=== PATIENT | male | born 1990 | race Caucasian/White ===

== ENCOUNTER 2018-08-30 14:36 | Inpatient (IN) | payer OTHER ==
[2018-08-30] MEDS ORDERED: DIPH,PERTUS(ACELL)TETVAC-LF 0.5 ML VIAL IM ONE (14:41)
--- NOTE | 2018-08-30 14:48 | ED ---
General Adult HPI - General Stated complaint: Mental Health Time Seen by Provider: 08/30/18 14:37 Source: patient, EMS, RN notes reviewed Mode of arrival: EMS Limitations: no limitations - History of Present Illness Initial comments: Patient is a 28-year-old male presenting to the emergency department for mental health evaluation. Patient admits to being increase stress and depressive the past week or 2. Patient has been fighting with his grandma. Patient did take a box maker to his throat and attempt to cut it. Patient has no thoughts of harming others. No hallucinations. No alcohol use. Patient does smoke marijuana, otherwise no street drugs. Unclear last tetanus immunization - Related Data Home Medications Medication Instructions Recorded Confirmed Ibuprofen [Motrin] 800 mg PO Q6HR PRN 01/23/16 01/23/16 Previous Rx's Medication Instructions Recorded Naproxen 500 mg PO Q12HR 14 Days tab 01/23/16 Allergies Allergy/AdvReac Type Severity Reaction Status Date / Time No Known Allergies Allergy Verified 08/30/18 14:48 Review of Systems ROS Statement: Those systems with pertinent positive or pertinent negative responses have been documented in the HPI. ROS Other: All systems not noted in ROS Statement are negative. Constitutional: Denies: fever Eyes: Denies: eye pain ENT: Denies: ear pain Respiratory: Denies: cough Cardiovascular: Denies: chest pain Endocrine: Denies: fatigue Gastrointestinal: Denies: abdominal pain Genitourinary: Denies: dysuria Musculoskeletal: Denies: back pain Skin: Denies: rash Neurological: Denies: weakness Psychiatric: Reports: anxiety, depression, suicidal thoughts. Denies: auditory hallucinations, visual hallucinations, homicidal thoughts Past Medical History Past Medical History: No Reported History History of Any Multi-Drug Resistant Organisms: None Reported Past Surgical History: No Surgical Hx Reported Past Psychological History: Anxiety, Depression Smoking Status: Current every day smoker Past Alcohol Use History: None Reported Past Drug Use History: None Reported General Exam Limitations: no limitations General appearance: alert, anxious Head exam: Present: atraumatic Eye exam: Present: normal appearance, PERRL ENT exam: Present: normal oropharynx Neck exam: Present: other (Horizontal abrasion) Respiratory exam: Present: normal lung sounds bilaterally Cardiovascular Exam: Present: regular rate, normal rhythm GI/Abdominal exam: Present: soft. Absent: tenderness Extremities exam: Present: normal inspection Neurological exam: Present: alert Psychiatric exam: Present: anxious, other (Tearful) Skin exam: Present: abrasion (Horizontal neck abrasion) Course Vital Signs 08/30/18 14:37 Temperature 98.9 F Pulse Rate 76 Respiratory 20 Rate Blood Pressure 146/95 O2 Sat by Pulse 98 Oximetry Medical Decision Making - Medical Decision Making Patient was seen by mental health services who did fill out petition and would like to admit patient. Positive clinical certificate completed. Disposition Clinical Impression: Suicidal ideation, Depression Disposition: TRANSFER TO PSYCH HOSP/UNIT Is patient prescribed a controlled substance at d/c from ED?: No Referrals: Mathieu Adames MD [Primary Care Provider] - 1-2 days Decision Time: 15:52
[2018-08-30] MEDS ORDERED: ZIPRASIDONE 20 MG VIAL IM STA (15:48)
[2018-08-30] MEDS ORDERED: LORazepam 2 MG/ML INJ IV ONE (16:00)
[2018-08-30] MEDS ORDERED: MAGNESIUM HYDROXIDE 2,400 MG/10 ML CUP PO PRN (16:20)
[2018-08-30] MEDS ORDERED: ACETAMINOPHEN TAB 325 MG TAB PO PRN (16:20)
[2018-08-30] MEDS ORDERED: MAG HYDROX/AL HYDROX/SIMETH 30 ML CUP PO PRN (16:20)
[2018-08-30] MEDS ORDERED: LORazepam 1 MG TAB PO PRN (16:20)
[2018-08-30] MEDS ORDERED: ZIPRASIDONE 20 MG VIAL IM PRN (16:20)
[2018-08-30] MEDS ORDERED: LORazepam 2 MG/ML INJ IM PRN (16:28)
[2018-08-30 17:09] VITALS: BMI 23.1
[2018-08-30] MEDS ORDERED: NICOTINE 14MG/24HR PATCH TRANSDERM STA (20:32)
[2018-08-31] MEDS: NICOTINE 14MG/24HR PATCH TRANSDERM SCH (08:44)
--- NOTE | 2018-08-31 11:25 | P.HP ---
Psychiatric H&P - . H&P Date: 08/31/18 History & Physical: Allergies Allergy/AdvReac Type Severity Reaction Status Date / Time No Known Allergies Allergy Verified 08/30/18 15:54 Vital Signs Temp 98.6 F 08/31/18 06:22 Pulse 75 08/31/18 06:22 Resp 16 08/31/18 06:22 BP 113/73 08/31/18 06:22 Pulse Ox 98 08/30/18 14:37 Intake & Output 08/30/18 08/31/18 08/31/18 18:59 06:59 18:59 Weight 67.146 kg Assessment and Plan Assessment: Patient is a 28-year-old male presenting to the emergency department for mental health evaluation. Patient admits to being increase stress and depressive the past week or 2. Patient has been fighting with his grandma. Patient did take a box maker to his throat and attempt to cut it. Patient has no thoughts of harming others. No hallucinations. No alcohol use. Patient does smoke marijuana, otherwise no street drugs. Unclear last tetanus immunization Psychiatric: Reports: anxiety, depression, suicidal thoughts. Denies: auditory hallucinations, visual hallucinations, homicidal thoughts Pt brought in by EMS for cutting his throat with box maker and being suicidal and depressed. Pt arrived at his mothers house picked up a knife and cut his throat. She called EMS and they brought him to the hospital. He was very distraught and stated he had been thrown out of his grandmothers house because she accused him of stealing money out of her lock box. He was so upset because he said this was not the first time she accused him. He admits that he has done it in the past but he did not this time. Pt admits to having a hard time with his life. He states that his father has never been in his life and his mother is not even sure who he is. He felt unloved and unwanted in his life. He said the only attention he got was negative attention. So he resorted to bad behavior. His mother thinks he might have a drug problem such as adderall. He was laid off of his job 4 months ago and he has nothing to nano on. Now tht his grandmother threw him out and his mother stated he could not live with her because of her younger children, he has no hope for the future. pt is without a job not money so he sleeps a lot Pt was very agitated and did not want to be admitted. He was very emotional and crying. He became a flight risk, we had a sitter put on him. He had a hard time controlling his emotions. He was given geodon/ativan im to help calm him down. - Related Data Home Medications Medication Instructions Recorded Confirmed Ibuprofen [Motrin] 800 mg PO Q6HR PRN 01/23/16 01/23/16 Previous Rx's Medication Instructions Recorded Naproxen 500 mg PO Q12HR 14 Days tab 01/23/16 Allergies Allergy/AdvReac Type Severity Reaction Status Date / Time No Known Allergies Allergy Verified 08/30/18 14:48 Past Medical History Past Medical History: No Reported History History of Any Multi-Drug Resistant Organisms: None Reported Past Surgical History: No Surgical Hx Reported Past Psychological History: Anxiety, Depression Smoking Status: Current every day smoker Past Alcohol Use History: None Reported Past Drug Use History: None Reported Musculoskeletal Examination - Abnormal/Involuntary Movements: [none Strength: [greater than antigravity (greater than/equal to 3/5) in all extremities Muscle Tone: [no impairment Gait: [grossly normal Station: [grossly normal Mental Status Examination - this is a 28-year-old single male who has never known his father about lives with his grandmother and mother lives in the same apartment complex. He and grandmother were having a discussion about bills money responsibilities and he became extremely depressed after comments came from grandmother and when he threatened to cut his throat with box maker his grandmother stated he was a coward and then he cut himself. We discussed the dynamics in the [place] and relationship with mother. Mother still has 2 children living in the house 17-year-old and a 21-year-old. Family felt that he could live with the grandmother scripts place to the other 2 children. We discussed possibility of moving back with his mother may be a more stable environment. He's had lifelong history of depression was on medications before but stopped. He does not see a psychiatrist now nor does he see a therapist General Appearance: [ casual, appears stated age Speech/Language: [spontaneous, soft] Attitude/Behavior: [ guarded, irritable, withdrawn, indifferent Mood: [ depressed 10 out of 10, anxious 8 out of 10, fearful of the psychiatric lopez, hopelessness] Affect: [full range, lively, flat, incongruent, labile, blunted constricted, other] Orientation: [time, person, place situation] Thought Content: [wnl, Risk Factors: [Admitted to suicidal (ideations, plan), but not Homicidal (ideations, plan), other] Perception: [wnl, denies hallucinations (auditory, visual, tactile), other] Thought Processes: [ concrete, circumstantial, tangential, other] Concentration/Attention Span: [wnl] [Per observation and interview with the patient] Recent Memory: [wnl] [ 3 out of 3 in 3 minutes] Remote Memory: [wnl] [past events, as related history] Intelligence: [average] [based on history, based on vocabulary, syntax, grammar, and content] Judgement: [ poor] [per patient's behavior/history of present illness] Insight: [ poor] [understanding severity of illness/history of present illness] Admitting Diagnosis: [Major depressive disorder severe recurrent with severity due to 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. mental health [facility]. He will have a general examination by medicine, psychiatry, nursing staff, social work and occupational therapy. He'll be integrated into work and milieu therapeutic environment whereby he'll be expected to go to groups and to take his medication as ordered. He will be started on Effexor 37.5 mg XR and Lamictal 25 mg by mouth daily at bedtime. He'll placed on 15 minute checks and usual safety protocol for the mental health unit [address] ] Estimated Length of Stay: [5-7 days] Initial Discharge Plan: [home, [facility], referred to therapist Prognosis: [ guarded] Justification for Inpatient Hospitalization - [ anxiety, depression resulting in significant loss of functioning.] [Dangerous to self with need for controlled environment.] [Emotional or behavioral conditions and complications requiring 24 hour medical and nursing care.] [Need for special drug therapy, or other therapeutic program requiring continuous hospitalization.] [Failure of social or occupational functioning.] [Inability to meet basic life and health needs.] [Legally mandated admission.] (1) Major depressive disorder with psychotic features Current Visit: Yes Status: Acute Code(s): F32.3 - MAJOR DEPRESSV DISORD, SINGLE EPSD, SEVERE W PSYCH FEATURES SNOMED Code(s): 18692419
[2018-08-31 12:00] LABS: ALT 28 U/L (21-72); AST 25 U/L (17-59); Albumin 4.5 g/dL (3.5-5.0); Alkaline Phosphatase 55 U/L (38-126); Anion Gap 6 mmol/L; Blood Urea Nitrogen 11 mg/dL (9-20); Calcium 9.7 mg/dL (8.4-10.2); Carbon Dioxide 30 mmol/L (22-30); Chloride 103 mmol/L (98-107); Cholesterol 189 mg/dL (<200); Glucose 112 mg/dL (74-99); HDL Cholesterol 60 mg/dL (40-60); LDL Cholesterol,Calculated 93 mg/dL (0-99); Potassium 3.5 mmol/L (3.5-5.1); Sodium 139 mmol/L (137-145); Total Bilirubin 0.8 mg/dL (0.2-1.3); Total Protein 6.8 g/dL (6.3-8.2); Triglycerides 178 mg/dL (<150)
[2018-08-31 12:06] LABS: Basophils % (A) 0 %; Eosinophils # (A) 0.1 k/uL (0-0.7); Eosinophils % (A) 1 %; HCT 45.5 % (39.0-53.0); HGB 15.5 gm/dL (13.0-17.5); Lymphocytes # (A) 1.4 k/uL (1.0-4.8); Lymphocytes % (A) 21 %; MCH 31.8 pg (25.0-35.0); MCHC 34.2 g/dL (31.0-37.0); MCV 93.2 fL (80.0-100.0); Mean Platelet Volume 6.8; Monocytes # (A) 0.4 k/uL (0-1.0); Monocytes % (A) 6 %; Neutrophils # (A) 4.9 k/uL (1.3-7.7); Neutrophils % (A) 72 %; Platelet Count 301 k/uL (150-450); RBC 4.88 m/uL (4.30-5.90); RDW 12.8 % (11.5-15.5); WBC 6.9 k/uL (3.8-10.6)
--- NOTE | 2018-08-31 16:44 | P.MDCNMH ---
History of Present Illness H&P Date: 08/31/18 Chief Complaint: Depression Patient is a 28-year-old male with a known history of anxiety/depression, facial rosacea, cigarette smoking initially presented to ER due to increased depression symptoms. Patient says that he has been more stressful and depressive for the past 2 weeks. Patient says that he lost his job. Patient has been fighting with his grandma. Patient did take a snuff box finisher to his throat and attempt to cut it. Patient has no thoughts of harming others. No hallucinations. No alcohol use. Patient does smoke marijuana, otherwise no street drugs. Unclear last tetanus immunization. Currently denied any complaints of chest pain or shortness of breath. No nausea vomiting or abdominal pain. No diarrhea or dysuria. Patient says that he has been having facial rosacea and has been taking minocycline for past 3 months. No fever no chills. Review of Systems Constitutional: Patient denies any fever or chills . No generalized weakness or weight loss. Abdomen: Patient denied nausea vomiting and diarrhea and abdominal pain. Cardiovascular: Patient denies any chest pain or short of breath no palpitat ions. Respiratory: patient denied any cough is from production. No shortness of breath Neurologic: Patient denied any numbness or tingling headache. Musculoskeletal: Patient denies any complaints of joint swelling or deformity. Skin: Negative Psychiatric: Depressive Endocrine: No heat or cold intolerance. No recent weight gain. Genitourinary: No dysuria or hematuria. All other 14 point ROS negative except the above Past Medical History Past Medical History: No Reported History History of Any Multi-Drug Resistant Organisms: None Reported Past Surgical History: No Surgical Hx Reported Past Psychological History: Anxiety, Depression Smoking Status: Current every day smoker Past Alcohol Use History: None Reported Additional Past Alcohol Use History / Comment(s): smokes 2-3 cigarettes a day Past Drug Use History: None Reported Medications and Allergies Home Medications Medication Instructions Recorded Confirmed Type Escitalopram [Lexapro] 5 mg PO DAILY 08/30/18 08/30/18 History Ibuprofen [Motrin Ib] 800 mg PO Q8H PRN 08/30/18 08/30/18 History Minocycline HCl [Minocin] 50 mg PO DAILY 08/30/18 08/30/18 History Allergies Allergy/AdvReac Type Severity Reaction Status Date / Time No Known Allergies Allergy Verified 08/30/18 15:54 Physical Exam Vitals: Vital Signs Temp Pulse Resp BP 08/31/18 06:22 98.6 F 75 16 113/73 08/30/18 17:01 97.7 F 61 18 138/78 PHYSICAL EXAMINATION: Patient is lying in the bed comfortably, no acute distress, awake alert and oriented.. HEENT: Normocephalic. Neck is supple. Pupils reactive. Nostrils clear. Oral cavity is moist. Ears reveal no drainage. Poor dentition. Neck reveals no JVD, carotid bruits, or thyromegaly. CHEST EXAMINATION: Trachea is central. Symmetrical expansion. Lung stewart clear to auscultation and percussion. CARDIAC: Normal S1, S2 with no gallops. No murmurs ABDOMEN: Soft. Bowel sounds normal. No organomegaly. No abdominal bruits. Extremities: reveal no edema. No clubbing or cyanosis Neurologically awake, alert, oriented x3 with well-coordinated movements. No focal deficits noted Skin: Patient does have facial rosacea with redness. No pustules. Psychiatric: Coperative. Nonsuicidal Musculoskeletal: No joint swelling or deformity. Normal range of motion. Cranial Nerve Examination - Cranial Nerves Cranial Nerve I- Olfactory: Intact Cranial Nerve II- Optic: Intact Cranial Nerve III- Oculomotor: Intact Cranial Nerve IV- Trochlear: Intact Cranial Nerve V- Trigeminal: Intact Cranial Nerve - Abducens: Intact Cranial Nerve VII- Facial: Intact Cranial Nerve VIII- Auditory: Intact Cranial Nerve IX- Glossopharyngeal: Intact Cranial Nerve X- Vagus: Intact Cranial Nerve XI- Accessory: Intact Cranial Nerve XII- Hypoglossal: Intact Results CBC & Chem 7: 08/31/18 11:23 08/31/18 11:23 Labs: Abnormal Lab Results - Last 24 Hours (Table) 08/31/18 Range/Units 11:23 Glucose 112 H (74-99) mg/dL Triglycerides 178 H (<150) mg/dL Assessment and Plan Assessment: Major depression without any suicidal ideation. Nicotine addiction Marijuana use Facial rosacea poordentition Early ambulation for DVT prophylaxis Plan: Patient be continued on current antidepressants. We will apply metronidazole topical cream for rosacea. Smoking cessation and marijuana use has been counseled extensively. Otherwise continue the current management. Further recommendations based on the clinical course. Thank you for your consult. Time with Patient: Greater than 30
[2018-08-31] MEDS ORDERED: VENLAFAXINE HCL ER 37.5 MG CAP PO SCH (21:00)
[2018-08-31] MEDS ORDERED: lamoTRIgine 25 MG TAB PO SCH (21:00)
[2018-09-01] MEDS: NICOTINE 14MG/24HR PATCH TRANSDERM SCH (08:51)
--- NOTE | 2018-09-01 11:18 | P.PN ---
Subjective Progress Note Date: 09/01/18 Principal diagnosis: major depressive disorder-severe with suicide attempt 09/01/2018: Chart reviewed, discussed with nursing staff, discussed in team regarding prognosis and discharge. Patient interviewed and he still remains anxious and difficulty sleeping at night. He describes his depression is less 6 out of 10. He denies any auditory or visual hallucinations. He finds the benefit from the lopez milieu therapeutic environment. Objective - Vital Signs Vital signs: Vital Signs Temp 98.1 F 09/01/18 03:08 Pulse 60 09/01/18 03:08 Resp 14 09/01/18 03:08 BP 127/85 09/01/18 03:08 Pulse Ox 98 08/30/18 14:37 - Labs CBC & Chem 7: 08/31/18 11:23 08/31/18 11:23 Labs: Abnormal Lab Results - Last 24 Hours (Table) 08/31/18 Range/Units 11:23 Glucose 112 H (74-99) mg/dL Triglycerides 178 H (<150) mg/dL Assessment and Plan Assessment: Patient is a 28-year-old male presenting to the emergency department for mental health evaluation. Patient admits to being increase stress and depressive the past week or 2. Patient has been fighting with his grandma. Patient did take a box blank machine feeder to his throat and attempt to cut it. Patient has no thoughts of harming others. No hallucinations. No alcohol use. Patient does smoke marijuana, otherwise no street drugs. Unclear last tetanus immunization Psychiatric: Reports: anxiety, depression, suicidal thoughts. Denies: auditory hallucinations, visual hallucinations, homicidal thoughts Pt brought in by EMS for cutting his throat with box blank machine feeder and being suicidal and depressed. Pt arrived at his mothers house picked up a knife and cut his throat. She arie led EMS and they brought him to the hospital. He was very distraught and stated he had been thrown out of his grandmothers house because she accused him of stealing money out of her lock box. He was so upset because he said this was not the first time she accused him. He admits that he has done it in the past but he did not this time. Pt admits to having a hard time with his life. He states that his father has never been in his life and his mother is not even sure who he is. He felt unloved and unwanted in his life. He said the only attention he got was negative attention. So he resorted to bad behavior. His mother thinks he might have a drug problem such as adderall. He was laid off of his job 4 months ago and he has nothing to nano on. Now tht his grandmother threw him out and his mother stated he could not live with her because of her younger children, he has no hope for the future. pt is without a job not money so he sleeps a lot Pt was very agitated and did not want to be admitted. He was very emotional and crying. He became a flight risk, we had a sitter put on him. He had a hard time controlling his emotions. He was given geodon/ativan im to help calm him down. - Mental Status Examination - this is a 28-year-old single male who has never known his father about lives with his grandmother and mother lives in the same apartment complex. He and grandmother were having a discussion about bills money responsibilities and he became extremely depressed after comments came from grandmother and when he threatened to cut his throat with box blank machine feeder his grandmother stated he was a coward and then he cut himself. We discussed the dynamics in the [place] and relationship with mother. Mother still has 2 children living in the house 17-year-old and a 21-year-old. Family felt that he could live with the grandmother scripts place to the other 2 children. We discussed possibility of moving back with his mother may be a more stable environment. He's had lifelong history of depression was on medications before but stopped. He does not see a psychiatrist now nor does he see a therapist General Appearance: [ casual, appears stated age Speech/Language: [spontaneous, soft] Attitude/Behavior: [ guarded, irritable, withdrawn, indifferent Mood: [ depressed 10 out of 10, anxious 8 out of 10, fearful of the psychiatric lopez, hopelessness] Affect: [full range, lively, flat, incongruent, labile, blunted constricted, other] Orientation: [time, person, place situation] Thought Content: [wnl, Risk Factors: [Admitted to suicidal (ideations, plan), but not Homicidal (ideations, plan), other] Perception: [wnl, denies hallucinations (auditory, visual, tactile), other] Thought Processes: [ concrete, circumstantial, tangential, other] Concentration/Attention Span: [wnl] [Per observation and interview with the patient] Recent Memory: [wnl] [ 3 out of 3 in 3 minutes] Remote Memory: [wnl] [past events, as related history] Intelligence: [average] [based on history, based on vocabulary, syntax, grammar, and content] Judgement: [ poor] [per patient's behavior/history of present illness] Insight: [ poor] [understanding severity of illness/history of present illness] Admitting Diagnosis: [Major depressive disorder severe recurrent with severity due to attempting to kill himself] Initial Plan of Care: [He will be admitted involuntary to the psychiatric unit with application for involuntary psychiatric stay, first clinical certification filled out, and I filled out the second certification for involuntary stay on the psychiatric unit at [facility]. mental health unit [facility]. He will have a general examination by medicine, psychiatry, nursing staff, social work and occupational therapy. He'll be integrated into work and milieu therapeutic environment whereby he'll be expected to go to groups and to take his medication as ordered. He will be started on Effexor 37.5 mg XR and Lamictal 25 mg by mouth daily at bedtime. He'll placed on 15 minute checks and usual safety protocol for the mental health unit [address] 09/01/2018: Chart reviewed veins and involuntary basis with 15 minute checks and usual safety protocol the mental health unit. His Effexor will be increased to 75 mg by mouth daily at bedtime and his Lamictal be increased to 50 mg by mouth daily at bedtime. The benefit risk ratio was discussed with the patient of medication and possible side effects. He is agreeable to take the medicine and increase of the above for mentioned medications. (1) Major depressive disorder with psychotic features Current Visit: Yes Status: Acute Code(s): F32.3 - MAJOR DEPRESSV DISORD, SINGLE EPSD, SEVERE W PSYCH FEATURES SNOMED Code(s): 37960370 Time with Patient: Less than 30
[2018-09-01] MEDS: hydrOXYzine PAMOATE 25 MG CAP PO PRN ×2 (16:39→21:54)
[2018-09-01] MEDS ORDERED: lamoTRIgine 25 MG TAB PO SCH (21:00)
[2018-09-01] MEDS ORDERED: VENLAFAXINE HCL ER 75 MG CAP PO SCH (21:00)
[2018-09-02 06:33] VITALS: BP 123/74; PULSE 55; RESP 16; TEMP 97.7
[2018-09-02] MEDS: NICOTINE 14MG/24HR PATCH TRANSDERM SCH (08:47)
[2018-09-02] MEDS: hydrOXYzine PAMOATE 25 MG CAP PO PRN (08:49)
--- NOTE | 2018-09-02 11:58 | P.DS ---
Providers Date of admission: 08/30/18 15:55 Expected date of discharge: 09/02/18 Attending physician: Rui Alexander DO Consults: 08/30/18 16:20 Consult Physician Routine Consulting Provider: Anthony Velasco Consult Reason/Comments: medical management Do you want consulting provider notified?: Yes, Notify in am Primary care physician: Mathieu Adames - Discharge Diagnosis(es) (1) Major depressive disorder with psychotic features Patient is a 28-year-old male presenting to the emergency department for mental health evaluation. Patient admits to being increase stress and depressive the past week or 2. Patient has been fighting with his grandma. Patient did take a safe deposit box rental clerk to his throat and attempt to cut it. Patient has no thoughts of harming others. No hallucinations. No alcohol use. Patient does smoke marijuana, otherwise no street drugs. Unclear last tetanus immunization Psychiatric: Reports: anxiety, depression, suicidal thoughts. Denies: auditory hallucinations, visual hallucinations, homicidal thoughts Pt brought in by EMS for cutting his throat with safe deposit box rental clerk and being suicidal and depressed. Pt arrived at his mothers house picked up a knife and cut his throat. She called EMS and they brought him to the hospital. He was very distraught and stated he had been thrown out of his grandmothers house because she accused him of stealing money out of her lock box. He was so upset because he said this was not the first time she accused him. He admits that he has done it in the past but he did not this time. Pt admits to having a hard time with his life. He states that his father has never been in his life and his mother is not even sure who he is. He felt unloved and unwanted in his life. He said the only attention he got was negative attention. So he resorted to bad behavior. His mother thinks he might have a drug problem such as adderall. He was laid off of his job 4 months ago and he has nothing to nano on. Now tht his grandmother threw him out and his mother stated he could not live with her because of her younger children, he has no hope for the future. pt is without a job not money so he sleeps a lot Pt was very agitated and did not want to be admitted. He was very emotional and crying. He became a flight risk, we had a sitter put on him. He had a hard time controlling his emotions. He was given geodon/ativan im to help calm him down. - Related Data Home Medications Medication Instructions Recorded Confirmed Ibuprofen [Motrin] 800 mg PO Q6HR PRN 01/23/16 01/23/16 Previous Rx's Medication Instructions Recorded Naproxen 500 mg PO Q12HR 14 Days tab 01/23/16 Allergies Allergy/AdvReac Type Severity Reaction Status Date / Time No Known Allergies Allergy Verified 08/30/18 14:48 Past Medical History Past Medical History: No Reported History History of Any Multi-Drug Resistant Organisms: None Reported Past Surgical History: No Surgical Hx Reported Past Psychological History: Anxiety, Depression Smoking Status: Current every day smoker Past Alcohol Use History: None Reported Past Drug Use History: None Reported Musculoskeletal Examination - Abnormal/Involuntary Movements: [none Strength: [greater than antigravity (greater than/equal to 3/5) in all extremities Muscle Tone: [no impairment Gait: [grossly normal Station: [grossly normal Mental Status Examination - this is a 28-year-old single male who has never known his father about lives with his grandmother and mother lives in the same apartment complex. He and grandmother were having a discussion about bills money responsibilities and he became extremely depressed after comments came from grandmother and when he threatened to cut his throat with safe deposit box rental clerk his grandmother stated he was a coward and then he cut himself. We discussed the dynamics in the [place] and relationship with mother. Mother still has 2 children living in the house 17-year-old and a 21-year-old. Family felt that he could live with the grandmother scripts place to the other 2 children. We discussed possibility of moving back with his mother may be a more stable environment. He's had lifelong history of depression was on medications before but stopped. He does not see a psychiatrist now nor does he see a therapist General Appearance: [ casual, appears stated age Speech/Language: [spontaneous, soft] Attitude/Behavior: [ guarded, irritable, withdrawn, indifferent Mood: [ depressed 10 out of 10, anxious 8 out of 10, fearful of the psychiatric lopez, hopelessness] Affect: [full range, lively, flat, incongruent, labile, blunted constricted, other] Orientation: [time, person, place situation] Thought Content: [wnl, Risk Factors: [Admitted to suicidal (ideations, plan), but not Homicidal (ideations, plan), other] Perception: [wnl, denies hallucinations (auditory, visual, tactile), other] Thought Processes: [ concrete, circumstantial, tangential, other] Concentration/Attention Span: [wnl] [Per observation and interview with the patient] Recent Memory: [wnl] [ 3 out of 3 in 3 minutes] Remote Memory: [wnl] [past events, as related history] Intelligence: [average] [based on history, based on vocabulary, syntax, grammar, and content] Judgement: [ poor] [per patient's behavior/history of present illness] Insight: [ poor] [understanding severity of illness/history of present illness] Admitting Diagnosis: [Major depressive disorder severe recurrent with severity due to attempting to kill himself] Current Visit: Yes Status: Acute Priority: Low Hospital Course: Plan of Care: [He will be admitted involuntary to the psychiatric unit with application for involuntary psychiatric stay, first clinical certification filled out, and I filled out the second certification for involuntary stay on the psychiatric unit at [facility]. He will have a general examination by medicine, psychiatry, nursing staff, social work and occupational therapy. He'll be integrated into work and milieu therapeutic environment whereby he'll be expected to go to groups and to take his medication as ordered. He will be started on Effexor 37.5 mg XR and Lamictal 25 mg by mouth daily at bedtime. He'll placed on 15 minute checks and usual safety protocol for the mental health unit [address] 09/01/2018: Chart reviewed veins and involuntary basis with 15 minute checks and usual safety protocol the mental health unit. His Effexor will be increased to 75 mg by mouth daily at bedtime and his Lamictal be increased to 50 mg by mouth daily at bedtime. The benefit risk ratio was discussed with the patient of medication and possible side effects. He is agreeable to take the medicine and increase of the above for mentioned medications. 09/02/2018: He deferred today and is willing to do outpatient treatment At [facility]. Mental status examination time of discharge: The patient presents alert, pleasant, and cooperative. There calmly seated without any agitated behavior. [He] reports that [his] mood is good. Affect is congruent and euthymic. [He] deny having any suicidal or homicidal ideation intent or plan. [He] denies any auditory or visual hallucinations. There is no evidence of any delusional thought content. [His] thought process is linear and goal-directed. [His] speech is fluent and nonpressured. His memory and concentration is grossly intact for the purposes of this session. Discharge Medication List Ibuprofen [Motrin Ib] 800 mg PO Q8H PRN 08/30/18 [History] Minocycline HCl [Minocin] 50 mg PO DAILY 30 Days #30 capsule 09/02/18 [Rx] Nicotine 14Mg/24Hr Patch [Habitrol] 1 patch TRANSDERM DAILY 30 Days #30 patch 09/02/18 [Rx] Venlafaxine HCl ER [Effexor XR] 75 mg PO HS 30 Days #30 cap.er.24h 09/02/18 [Rx] hydrOXYzine PAMOATE [Vistaril] 25 mg PO Q6HR PRN 30 Days #30 cap 09/02/18 [Rx] lamoTRIgine [LaMICtal] 50 mg PO 2100 30 Days #60 tab 09/02/18 [Rx] metroNIDAZOLE 0.75% CREAM [Metrocream] 1 applic TOPICAL BID 30 Days #1 applic 09/02/18 [Rx] Patient Condition at Discharge: Stable Plan - Discharge Summary Discharge Rx Participant: Yes New Discharge Prescriptions: New Venlafaxine HCl ER [Effexor XR] 75 mg PO HS 30 Days #30 cap.er.24h Nicotine 14Mg/24Hr Patch [Habitrol] 1 patch TRANSDERM DAILY 30 Days #30 patch lamoTRIgine [LaMICtal] 50 mg PO 2100 30 Days #60 tab metroNIDAZOLE 0.75% CREAM [Metrocream] 1 applic TOPICAL BID 30 Days #1 applic hydrOXYzine PAMOATE [Vistaril] 25 mg PO Q6HR PRN 30 Days #30 cap PRN Reason: Agitation Or Acute Anxiety Continue Ibuprofen [Motrin Ib] 800 mg PO Q8H PRN PRN Reason: Pain Minocycline HCl [Minocin] 50 mg PO DAILY 30 Days #30 capsule Discontinued Escitalopram [Lexapro] 5 mg PO DAILY Discharge Medication List Ibuprofen [Motrin Ib] 800 mg PO Q8H PRN 08/30/18 [History] Minocycline HCl [Minocin] 50 mg PO DAILY 30 Days #30 capsule 09/02/18 [Rx] Nicotine 14Mg/24Hr Patch [Habitrol] 1 patch TRANSDERM DAILY 30 Days #30 patch 09/02/18 [Rx] Venlafaxine HCl ER [Effexor XR] 75 mg PO HS 30 Days #30 cap.er.24h 09/02/18 [Rx] hydrOXYzine PAMOATE [Vistaril] 25 mg PO Q6HR PRN 30 Days #30 cap 09/02/18 [Rx] lamoTRIgine [LaMICtal] 50 mg PO 2100 30 Days #60 tab 09/02/18 [Rx] metroNIDAZOLE 0.75% CREAM [Metrocream] 1 applic TOPICAL BID 30 Days #1 applic 09/02/18 [Rx] Follow up Appointment(s)/Referral(s): Mathieu Adames MD [Primary Care Provider] - 1-2 days Patient Instructions/Handouts: Depression (DC), Suicide Prevention (DC) Activity/Diet/Wound Care/Special Instructions: Activity and diet as tolerated. Avoid the use of street drugs and alcohol. Take all medications as prescribed. When you are in need of refills on your medications please contact your medical provider and/or outpatient psychiatrist to have this done. Please go to scheduled outpatient appointment for aftercare treatment. If symptoms return or become worse, call the crisis line at and/or go to the nearest emergency room for evaluation. Discharge Disposition: HOME SELF-CARE
== END 2018-09-02 13:15 | disposition home or self-care (01) | DRG 885 ==
LOC: EC 14:36 → 3MHU 15:55
PROVIDERS: ADMIT Psychiatry & Neurology Psychiatry; ATTEND Psychiatry & Neurology Psychiatry
DX: F33.3 Major depressive disorder, recurrent, severe with psychotic symptoms (principal); R45.851 Suicidal ideations; F17.200 Nicotine dependence, unspecified, uncomplicated; F12.90 Cannabis use, unspecified, uncomplicated; F41.9 Anxiety disorder, unspecified; S10.91XA Abrasion of unspecified part of neck, initial encounter; Z91.19 Patient's noncompliance with other medical treatment and regimen; X78.1XXA Intentional self-harm by knife, initial encounter
CPT/HCPCS: 80053; 80061; 82075; 83036; 84443; 85025; 90471; 90715; 96372; 96374; 99285